=== PATIENT | female | born 1985 | race African-American/Black ===

== ENCOUNTER 2018-06-11 19:49 | Emergency (ER) | payer MEDICAID ==
[~2018-06-11] VITALS: Ht 167.6 cm; Wt 55.0 kg
[2018-06-11 19:55] VITALS: BP 122/93
== END 2018-06-11 21:30 | disposition left against medical advice (07) ==
LOC: ER 20:16
DX: Z53.21 Procedure and treatment not carried out due to patient leaving prior to being seen by health care provider (principal)